=== PATIENT | female | born 1990 | race Caucasian/White ===

== ENCOUNTER 2023-10-19 11:53 | Inpatient (IN) | payer OTHER ==
[~2023-10-19] VITALS: Ht 170.2 cm; Wt 98.0 kg
[2023-10-19 12:41] LABS: BASOPHILS % (AUTO) 0.5 % (0.0-2.0); EOSINOPHILS % (AUTO) 0.4 % (1.0-6.0); HEMATOCRIT 36.7 % (36-46); HEMOGLOBIN 12.7 g/dL (12.0-16.0); LYMPHOCYTES # (AUTO) 1.6 K/uL (1.0-4.8); LYMPHOCYTES % (AUTO) 20.3 % (22.0-44.0); MEAN CORPUSCULAR HEMOGLOBIN 29.7 pg (26.0-34.0); MEAN CORPUSCULAR HGB CONC 34.7 G/dL (31.0-37.0); MEAN CORPUSCULAR VOLUME 86 fL (80-100); MONOCYTES # (AUTO) 0.5 K/uL (0.1-1.0); NEUTROPHILS # (AUTO) 5.6 K/uL (1.8-7.7); NEUTROPHILS % (AUTO) 72.8 % (40.0-70.0); PLATELET COUNT (AUTO) 390 K/uL (150-450); RED BLOOD CELL COUNT(AUTO) 4.29 MIL/uL (4.00-5.20); RED CELL DISTRIBUTION WIDTH 12.6 % (11.5-14.5); WHITE BLOOD COUNT (AUTO) 7.7 K/uL (4.5-11.0)
[2023-10-19 12:52] LABS: ANION GAP 11 mmol/L (8-16); CALCIUM, TOTAL 9.2 mg/dL (8.8-10.5); CARBON DIOXIDE 23 mmol/L (22-29); CHLORIDE 103 mmol/L (98-107); CREATININE 0.76 mg/dL (0.60-1.30); GLOMERULAR FILTR. RATE CALC > 60 mL/min (>60); GLUCOSE,RANDOM 108 mg/dL (70-110); POTASSIUM 3.1 mmol/L (3.5-5.1); SODIUM SERUM 137 mmol/L (136-145); UREA NITROGEN, BLOOD 7 mg/dL (7-18)
[2023-10-19 13:01] LABS: ALCOHOL, BLOOD (SERUM) < 3 mg/dL (0-10)
[2023-10-19 13:04] LABS: ALANINE AMINOTRANSFERASE 41 U/L (12-78); ALBUMIN 4.1 g/dL (3.4-5.0); ALKALINE PHOSPHATASE 110 U/L (46-116); ASPARTATE AMINOTRANSFERASE 29 U/L (15-37); BILIRUBIN,TOTAL 0.5 mg/dL (0.1-1.0); HCG,QUANTITATIVE 1 mIU/mL (0-6); TOTAL PROTEIN, SERUM 7.6 g/dL (6.4-8.2)
[2023-10-19] MEDS: LORazepam 1 MG TABLET PO ONE (14:30)
[2023-10-19] MEDS: POTASSIUM CHLORIDE 20 MEQ ER TABLET PO ONE (14:30)
[2023-10-19] MEDS: OLANZapine 5 MG RAPDIS TABLET PO ONE (14:30)
[2023-10-19 15:06] LABS: COVID AG,FIA SOURCE NPH
[2023-10-19 15:27] LABS: SARS-COV2 (COVID) ANTIGEN,FIA Negative (Negative)
[2023-10-19 17:10] VITALS: BP 99/85; PULSE 85; RESP 18; TEMP 97.8; O2SAT 99
[2023-10-19 20:19] VITALS: BP 110/84; PULSE 88; RESP 17; TEMP 97.9
[2023-10-19] MEDS: ZOLPIDEM TARTRATE 10 MG TABLET PO PRN (22:23)
[2023-10-20] MEDS ORDERED: DOCUSATE SODIUM 100 MG CAPSULE PO PRN (07:15)
[2023-10-20] MEDS ORDERED: NICOTINE 14 MG/24 HOUR PATCH TD PRN (07:15)
[2023-10-20] MEDS ORDERED: PETROLATUM,WHITE 28 GM JELLY TP PRN (07:15)
[2023-10-20] MEDS ORDERED: MAG HYDROX/ALUMINUM HYD/SIMETH ES 30 ML SUSPENSION UDCUP PO PRN (07:15)
[2023-10-20] MEDS ORDERED: ACETAMINOPHEN 325 MG TABLET PO PRN (07:15)
[2023-10-20] MEDS ORDERED: ALBUTEROL SULFATE HFA 90 MCG/PUFF 8 GM INHALER IH PRN (07:15)
[2023-10-20] MEDS ORDERED: CloNIDine HCL 0.1 MG TABLET PO PRN (07:15)
[2023-10-20] MEDS ORDERED: GuaiFENesin/D-METHORPHAN [SUGAR-FREE] 200-20MG/10 ML SYRUP UDCUP PO PRN (07:15)
[2023-10-20] MEDS ORDERED: MAGNESIUM HYDROXIDE SUSPENSION 30 ML UDCUP PO PRN (07:15)
[2023-10-20] MEDS ORDERED: IBUPROFEN 400 MG TABLET PO PRN (07:15)
[2023-10-20] MEDS ORDERED: LOPERAMIDE HCL 2 MG CAPSULE PO PRN (07:15)
[2023-10-20 08:37] VITALS: BP 135/80; PULSE 94; RESP 18; TEMP 97.9; O2SAT 99
[2023-10-20] MEDS: ONDANSETRON HCL 4 MG TABLET PO PRN (09:37)
[2023-10-20] MEDS: ARIPiprazole 10 MG TABLET PO SCH (09:37)
[2023-10-20] MEDS: LORazepam 2 MG TABLET PO PRN (11:15)
[2023-10-20 20:00] VITALS: BP 131/91; PULSE 82; RESP 18; TEMP 98
[2023-10-20] MEDS: TraZODone HCL 50 MG TABLET PO SCH (20:27)
[2023-10-21 09:29] LABS: HEMOGLOBIN A1C 5.3 % (3.8-5.6)
[2023-10-21] MEDS: QUEtiapine FUMARATE 100 MG TABLET PO SCH (09:45)
[2023-10-21 09:48] LABS: POTASSIUM 3.3 mmol/L (3.5-5.1); THYROID STIMULATING HORMONE 0.53 uIU/mL (0.36-3.74)
[2023-10-21 09:58] VITALS: BP 128/84; PULSE 80; RESP 18; TEMP 97.8; O2SAT 98
[2023-10-21] MEDS: POTASSIUM CHLORIDE 20 MEQ ER TABLET PO ONE (11:39)
[2023-10-21] MEDS: QUEtiapine FUMARATE 100 MG TABLET PO PRN (16:01)
[2023-10-21 20:39] VITALS: BP 113/69; PULSE 93; RESP 18; TEMP 97.3; O2SAT 99
[2023-10-22 08:34] LABS: CHOL/HDL RATIO 3.3 (3.9-5.7); POTASSIUM 3.4 mmol/L (3.5-5.1)
[2023-10-22] MEDS: POTASSIUM CHLORIDE 20 MEQ ER TABLET PO ONE (12:29)
[2023-10-22 14:35] VITALS: BP 115/87; PULSE 88; RESP 16; TEMP 97.5; O2SAT 95
[2023-10-22 20:25] VITALS: BP 125/61; PULSE 104; RESP 18; TEMP 97.8; O2SAT 97
[2023-10-23 08:13] VITALS: BP 114/79; PULSE 88; RESP 18; TEMP 98; O2SAT 96
[2023-10-24 01:49] VITALS: RESP 18; TEMP 97.9
[2023-10-24 08:26] VITALS: BP 136/81; PULSE 103; RESP 18; TEMP 97.2; O2SAT 99
[2023-10-24] MEDS: QUEtiapine FUMARATE 200 MG TABLET PO SCH (20:11)
[2023-10-24 20:12] VITALS: BP 127/90; PULSE 89; RESP 18; TEMP 98.3; O2SAT 100
[2023-10-25 09:03] VITALS: BP 110/76; PULSE 104; RESP 17; TEMP 97.6; O2SAT 98
[2023-10-25 20:38] VITALS: BP 104/67; PULSE 90; RESP 18; TEMP 97.5; O2SAT 100
[2023-10-26 13:53] VITALS: BP 120/73; PULSE 92; RESP 17; TEMP 98.2; O2SAT 99
[2023-10-26] MEDS ORDERED: TRAZ-184 PO (16:05)
[2023-10-26] MEDS ORDERED: TRAZ150T79 PO (16:05)
[2023-10-26] MEDS ORDERED: QUET200T PO ×2 (16:58→17:01)
== END 2023-10-26 18:57 | disposition home or self-care (01) | DRG 885 ==
LOC: EMS 11:53 → B3A 14:48
PROVIDERS: ADMIT Psychiatry & Neurology Psychiatry; ATTEND Psychiatry & Neurology Psychiatry
PROC: GZHZZZZ Group Psychotherapy (ICD-10-PCS; principal; 2023-10-20)
DX: F31.2 Bipolar disorder, current episode manic severe with psychotic features (principal); E87.6 Hypokalemia; G47.00 Insomnia, unspecified; R03.0 Elevated blood-pressure reading, without diagnosis of hypertension; Z20.822 Contact with and (suspected) exposure to COVID-19
CPT/HCPCS: 80053; 80061; 83036; 84132; 84443; 84702; 85025; 99285; G0480; Q0162